=== PATIENT | female | born 1955 | race Caucasian/White ===

== ENCOUNTER → 2020-01-03 | Outpatient (CLI) | payer BC, OTHER ==
[~2020-01-03] VITALS: Ht 157.5 cm; Wt 69.5 kg
[~2020-01-03] MED LIST: APAP650 PO; ATENOLOL 25 MG25 M1 PO; CALCIUM 500 +1 EAC5 PO; CENTRUM SILVER1 EAC4 PO; CETIRIZINE HCL5 MG PO; COLACE100 MG PO; DOXYCYCLINE HYC50 MG PO; ESTRACE1 MG PO; ESTRADIOL 1 MG T1 M1 PO; FISH OIL 1,001000 M2 PO; IBUPROFEN 200200 M1 PO; LOSARTAN-HCTZ1 EAC3 PO; MOBIC7.5 MG PO; NEURONTIN 300300 M1 PO; NORCO 10-325 T1 EACH PO; PLAQUENIL200 MG PO; PROGESTERONE PO; PROVERA2.5 MG PO; TRAMADOL 50 MG50 MG PO; UROCIT PO; XARELTO10 MG PO
[2020-01-03 09:51] VITALS: BP 162/71
--- NOTE | 2020-01-03 10:06 | NUR ---
Pain Clinic Assessment: 1. History of Osteoarthritis: SPINE KNEES History of Rheumatoid Arthritis: 2. Height: 5 ft. 2 in. 157.5 cm. Weight: 153.2 lb. oz. 69.491 kg. Patient's BMI: 28.0 3. Vital Signs: BP: 162/71 Pulse: 64 Resp: 18 Temp: 02 Sat: 100 ECG Mon: 4. Pain Intensity: 6 5. Fall Risk: Dizziness: N Needs help standing or walking: N Fallen in the last 3 months: N Fall risk comments: 6. Patient on Blood Thinner: 7. History of Hypertension: Y 8. Opioid Therapy greater than 6 weeks: N Opiate Contract Signed: 9. Risk Assessment Tool Provided: 0-LOW RISK 10. Functional Assessment Tool: 11. Recreational Drug Use: Never Drug Type: Tobacco Use: Never Smoker Tobacco Type: Amount or Packs/day: How Many Years: Alcohol Use: No Frequency: Quant:
--- NOTE | 2020-01-07 15:51 | HPC ---
[facility] [place] [address] PAIN MANAGEMENT CONSULTATION Name: TONE VILA Room #: REG NATHALIA AppleConstantinoAleksandr.#: [id number] Admission: 01/03/20 Attend Phys: Ramsey Jones MD Discharge: Date of : 59 Report #: [id number] THIS REPORT FOR: cc: Reagan Valadez John E. DO Morgan, Richard L. MD ~ CC: Reagan Hampton DATE OF SERVICE: 01/03/2020 CHIEF COMPLAINT: Pain in the low back radiating into the left hip and leg. 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 She has had intermittent pain. This pain has become more intense and affects activities of daily living, walking and standing. She has done some walking and some exercises consistent with physical therapy, but they have not been helpful. She saw Dr. Reagan Riggs. She had previously been treated by Dr. Suárez and Dr. Riggs for a synovial cyst first by injection by Dr. Suárez and then Dr. Riggs performed surgery to excise the L4-L5 facet. There has apparently been some recurrence of cyst-like material from the facet, but it is contralateral on the right. Her pain is on the left. This pain she says begins in her midback, radiates down the buttocks only as far as the popliteal region. It is shooting, sharp and stabbing. Lifting, walking and bending all aggravate pain. Pain today is an 8 or 9/10. MEDICATIONS: Hydroxychloroquine, which she is taking chronically prescribed by Dr. Maciel for rheumatologic disorder. Losartan, hydrochlorothiazide, atenolol, doxycycline, medroxyprogesterone, estradiol, Krill oil, calcium, and cetirizine. ALLERGIES: SULFA. PAST MEDICAL HISTORY: Prior kidney stones, osteopenia, fibromyalgia, Raynaud's disease, hypertension. PAST SURGICAL HISTORY: Right knee replacement 2015, meniscectomy on the left 2018. Prior carpal tunnel syndrome and surgery for de Quervain's tenosynovitis, multiple lithotripsies, cholecystectomy. A 2014 synovial cyst resection, Dr. Reagan Riggs, L4-L5. SOCIAL HISTORY: She is a retired teacher. Denies use of tobacco or alcohol. [facility] [address] [place] [address] PAIN MANAGEMENT CONSULTATION Name: TONE VILA Room #: REG CLI [facility]#: [id number] Admission: 01/03/20 Attend Phys: Ramsey Jones MD Discharge: Date of : 59 Report #: [id number] Impacted pain score is 46/70. PHYSICAL EXAMINATION: GENERAL: She is pleasant, alert and oriented. VITAL SIGNS: Blood pressure of 162/71, heart rate 64, respirations 16, O2 sat is 100. She is 5 feet, 2 inches, weight 153 pounds, BMI of 28. She has a pain score of 6. MUSCULOSKELETAL: She independently moves from sitting to standing position and ambulates with an antalgic gait. She has pain across her low back. She has pain with both forward flexion and extension. Straight leg raising is mildly positive, radiating pain down the posterior aspect of the left leg and to the popliteal region. It does not go farther. There is no tenderness in the legs. Straight leg raising is mildly positive. There is tenderness over the left sacroiliac joint. Pain with Anton's test. MRI is reviewed demonstrating facet arthropathy, particularly at L4-L5 and L5-S1 bilaterally, worse on the right where there remains a synovial cyst at L4-L5. There is an anterolisthesis of L5 and S1, creating left neural foraminal stenosis and moderate bilateral facet arthropathy. IMPRESSION: Low back pain radiating through the L5-S1 distribution on the left, lumbar radiculopathy. I think there is also a component of sacroiliac joint pain with sacroiliitis. RECOMMENDATIONS: Transforaminal epidural injection. PROCEDURE: After informed consent, she was taken to the fluoroscopic suite, placed prone. Skin prepped with ChloraPrep. Skin anesthetized over the L5-S1 neural foramen. Using triplanar fluoroscopic views, I advanced the needle into the neural foramen. A 0.25 mL of Omnipaque was injected and spread along the L5 nerve root and entering into the epidural space was identified. This was then followed by 3 mL of 0.5% lidocaine mixed with 80 mg of triamcinolone. She tolerated the procedure well. There were no complications. Pain was reduced at the time of discharge and followup visit planned in 1 month. May consider sacroiliac injection if not improved. <ELECTRONICALLY SIGNED> By: Ramsey Jones MD 01/07/20 [id number] Ramsey Jones MD /nt
== END | disposition home or self-care (01) ==
LOC: PAIN 12-09 10:54
PROVIDERS: ATTEND Anesthesiology Pain Medicine
DX: M54.16 Radiculopathy, lumbar region (principal); G89.29 Other chronic pain; I10 Essential (primary) hypertension; M79.7 Fibromyalgia; M85.80 Other specified disorders of bone density and structure, unspecified site; Z87.442 Personal history of urinary calculi; Z98.890 Other specified postprocedural states; Z79.899 Other long term (current) drug therapy; Z88.2 Allergy status to sulfonamides; Z96.651 Presence of right artificial knee joint; Z90.49 Acquired absence of other specified parts of digestive tract

== ENCOUNTER → 2020-05-18 | Outpatient (CLI) | payer BC, OTHER ==
[~2020-05-18] VITALS: Ht 157.5 cm; Wt 70.0 kg
[2020-05-18 13:25] VITALS: BP 156/81
--- NOTE | 2020-05-18 13:37 | NUR ---
Pain Clinic Assessment: 1. History of Osteoarthritis: SPINE KNEES History of Rheumatoid Arthritis: 2. Height: 5 ft. 2 in. 157.5 cm. Weight: 154.4 lb. oz. 70.035 kg. Patient's BMI: 28.2 3. Vital Signs: BP: 156/81 Pulse: 73 Resp: 18 Temp: 02 Sat: 100 ECG Mon: 4. Pain Intensity: 4 5. Fall Risk: Dizziness: N Needs help standing or walking: N Fallen in the last 3 months: N Fall risk comments: 6. Patient on Blood Thinner: None 7. History of Hypertension: Y 8. Opioid Therapy greater than 6 weeks: N Opiate Contract Signed: 9. Risk Assessment Tool Provided: 0-LOW RISK 10. Functional Assessment Tool: 11. Recreational Drug Use: Never Drug Type: Tobacco Use: Never Smoker Tobacco Type: Amount or Packs/day: How Many Years: Alcohol Use: No Frequency: Quant:
== END | disposition home or self-care (01) ==
LOC: PAIN 06:53
PROVIDERS: ATTEND Anesthesiology Pain Medicine
DX: M54.16 Radiculopathy, lumbar region (principal); G89.29 Other chronic pain; I10 Essential (primary) hypertension; Z79.899 Other long term (current) drug therapy; Z98.890 Other specified postprocedural states

== ENCOUNTER → 2021-02-05 | Outpatient (CLI) | payer BC, OTHER ==
[~2021-02-05] VITALS: Ht 157.5 cm; Wt 62.1 kg
[~2021-02-05] MED LIST changes: +TYLENOL325 M1 PO
[2021-02-05 10:06] VITALS: BP 145/75
--- NOTE | 2021-02-05 10:56 | NUR ---
Pain Clinic Assessment: 1. History of Osteoarthritis: POLYARTHRITIS ALL OVER BODY History of Rheumatoid Arthritis: DENIES 2. Height: 5 ft. 2 in. 157.5 cm. Weight: 136.8 lb. oz. 62.052 kg. Patient's BMI: 25.0 3. Vital Signs: BP: 145/75 Pulse: 63 Resp: 14 Temp: 02 Sat: 100 ECG Mon: 4. Pain Intensity: 5 5. Fall Risk: Dizziness: N Needs help standing or walking: N Fallen in the last 3 months: N Fall risk comments: 6. Patient on Blood Thinner: None 7. History of Hypertension: Y 8. Opioid Therapy greater than 6 weeks: N Opiate Contract Signed: 9. Risk Assessment Tool Provided: 0-LOW RISK 10. Functional Assessment Tool: 11. Recreational Drug Use: Never Drug Type: Tobacco Use: Never Smoker Tobacco Type: Amount or Packs/day: How Many Years: Alcohol Use: No Frequency: Quant:
== END | disposition home or self-care (01) ==
LOC: PAIN 07:09
PROVIDERS: ATTEND Anesthesiology Pain Medicine
DX: M54.16 Radiculopathy, lumbar region (principal); G89.29 Other chronic pain; I10 Essential (primary) hypertension; M19.90 Unspecified osteoarthritis, unspecified site; Z98.890 Other specified postprocedural states; Z79.899 Other long term (current) drug therapy; Z88.2 Allergy status to sulfonamides

== ENCOUNTER → 2021-03-29 | Outpatient (CLI) | payer BC, OTHER ==
[~2021-03-29] VITALS: Ht 157.5 cm; Wt 64.0 kg
[~2021-03-29] MED LIST changes: +LIPITOR10 MG PO
[2021-03-29 08:58] VITALS: BP 148/79
== END | disposition home or self-care (01) ==
LOC: PAIN 06:59
PROVIDERS: ATTEND Anesthesiology Pain Medicine
DX: M54.16 Radiculopathy, lumbar region (principal); G89.29 Other chronic pain; M48.061 Spinal stenosis, lumbar region without neurogenic claudication; M71.38 Other bursal cyst, other site; I10 Essential (primary) hypertension; M19.90 Unspecified osteoarthritis, unspecified site; Z98.890 Other specified postprocedural states; Z79.899 Other long term (current) drug therapy; Z88.2 Allergy status to sulfonamides